=== PATIENT | male | born 1985 | race Caucasian/White ===

== ENCOUNTER 2021-10-17 18:03 | Emergency (ER) | payer MEDICAID, SELFPAY ==
[2021-10-17 18:15] VITALS: BP 93/65; PULSE 86; RESP 18; TEMP 36.4; O2SAT 100
--- NOTE | 2021-10-17 18:42 | ED.GENADUL_ITS ---
Discharge Plan Disposition Patient Disposition: HOME Condition: Stable Discharge Details Clinical Impression: Encounter for monitoring Suboxone maintenance therapy Primary Care Provider: Tosha,Local ED Provider: Geni Finch Home Meds and New Rx's Prescriptions: No Action buprenorphine-naloxone [Suboxone] 8-2 mg Film 1 film SUBLINGUAL DAILY RF: 0 Discharge Instructions Additional Instructions: You have been given a dose of your Suboxone therapy, please follow-up with your provider for additional dosing Medical Decision Making Patient appears well, he is alert and oriented, of decisional capacity I did supply patient with a dose of 8 mg Suboxone He is instructed to follow-up with his prescribing clinic tomorrow and to return earlier with new or worsening complaints Medical Records Medical records reviewed: Yes I reviewed the patient's medical records. Lab Data Lab results reviewed: Yes I reviewed the patient's lab results. HPI General Mode of arrival: ambulatory . Date/Time Provider Initiated Documentation: 10/17/21 18:20 . Limitations to Documentation: no limitations . Information obtained by: patient . HPI Narrative: This 36-year-old gentleman with history of IV drug abuse presents with request for different Suboxone. He states he is on 8 mg. He denies any fever or chills. He denies any withdrawal. He is not using any IV drugs recently. He states he is visiting family for Thanksgiving and tested to go to the [place] clinic, however they were unable to provide him with a dose which is why he presents here. Related Data Home Medications Medication Instructions Recorded Confirmed buprenorphine-naloxone [Suboxone] 1 film SUBLINGUAL DAILY 10/17/21 10/17/21 Allergies Allergy/AdvReac Type Severity Reaction Status Date / Time amoxicillin Allergy Severe Swelling/Ed Unverified 10/17/21 18:18 frances Penicillins Allergy Severe Swelling/Ed Unverified 10/17/21 18:18 frances General Stated Complaint: GenMedical DONOVAN: 5 Review of Systems All systems reviewed & are unremarkable except as noted in HPI and below [facility] Active Problem List (Updated 10/17/21 @ 18:51 by DELLA De Jesus) Encounter for monitoring Suboxone maintenance therapy (Acute) Social History Smoking/Tobacco Use Status: Current every day Tobacco Type: cigarettes Smoking risk assessment performed?: Yes Alcohol Intake: current Alcohol Intake frequency: holidays/special occasions only Drug use: Occasionally Substance use type: marijuana Do you feel safe at home: Yes Do you feel safe in your relationship?: Yes Exam Const General: cooperative Eyes General: appearance normal, both eyes and all related structures Resp Effort & Inspection: normal respiratory effort Cardio Rate: regular rate Neuro General: patient alert and patient oriented x3 Course Vital Signs Vital signs: Vital Signs Temperature 36.4 C L 10/17/21 18:15 Pulse 86 10/17/21 18:15 Respiratory Rate 18 10/17/21 18:15 Blood Pressure 93/65 L 10/17/21 18:15 Pulse Oximetry 100 10/17/21 18:15 Temperature 36.4 C L 10/17/21 18:15 Temperature Source Tympanic 10/17/21 18:15 Pulse 86 10/17/21 18:15 Respiratory Rate 18 10/17/21 18:15 Respiratory Effort Non-Labored 10/17/21 18:18 Blood Pressure 93/65 L 10/17/21 18:15 Pulse Oximetry 100 10/17/21 18:15 Pain Level 0 10/17/21 18:15
[2021-10-17] MEDS: Buprenorphine/Naloxone 8 mg/2 mg FILM 1 EACH SL (18:54)
--- NOTE | 2021-10-18 08:02 | NUR.NOTE ---
Nursing Note: Patient called asking about getting guest dosing for suboxone for today and tomorrow for himself and Andreia Enriquez. Per Dr. Huntley I told the patient that we do not prescribe chronic medications or narcotics. They should call their clinic to see about dosing here in [facility] or whatever else they can do. Stated they were told to be at their clinic by 9am and that they are unable to achieve that. I told them that if they have any problems or issues that we are here to evaluate them. Rochelle Gonzales
== END 2021-10-17 19:00 | disposition home or self-care (01) ==
PROVIDERS: Emergency Provider Physician Assistant
DX: F11.20 Opioid dependence, uncomplicated (principal); Z51.81 Encounter for therapeutic drug level monitoring
CPT/HCPCS: 99283

== ENCOUNTER 2021-11-06 15:52 | Emergency (ER) | payer MEDICAID, SELFPAY ==
[2021-11-06 15:55] VITALS: BP 103/65; PULSE 93; RESP 16; TEMP 36.5; O2SAT 97
--- NOTE | 2021-11-06 16:06 | ED.GENADUL_ITS ---
Discharge Plan Disposition Patient Disposition: HOME Condition: Stable Discharge Details Clinical Impression: Rash, Shingles Primary Care Provider: Tosha,Local ED Provider: Ronan Aragon Home Meds and New Rx's Prescriptions: New prednisone 20 mg tablet 60 mg PO DAILY 5 Days Qty: 15 RF: 0 acyclovir 800 mg tablet See Rx Instructions .ROUTE .COMPLEX 7 Days Qty: 35 RF: 0 Continued buprenorphine-naloxone [Suboxone] 8-2 mg Film 1 film SUBLINGUAL DAILY RF: 0 Discharge Instructions Instructions: Shingles (ED) Additional Instructions: your rash has the appearance of shingles follow up with your primary care provider in 1 week for itching symptoms you can take benadryl as needed follow dosing instructions on packaging if you feel more ill, have severe worsening pain or vision changes return to the emergency department Medical Decision Making 36 yo male comes in with chief complaint of lesions/rash on right side of his face. Denies any fevers or pain but that rash has been itchy. He has 3small circular areas that are mildly erythematous with a small vesicle in the center of them, one on the ear lobe and the other two on his cheek in a dermatome pattern. Normal external auditory canal, CN II-XII intact, no fevers or severe pain. I suspect shingles and he did have chicken pox as a child per patient, will start prednisone and acyclovir and advised to follow up with pcp, return precautions given Differential Diagnosis Differential Diagnosis: shingles, dermatitis, impetigo HPI General Mode of arrival: ambulatory . Date/Time Provider Initiated Documentation: 11/06/21 15:55 . Limitations to Documentation: no limitations . Information obtained by: patient . History of Present Illness 36 year old M presents to the emergency department with the chief complaint of rash, described as mild, and is localized to the face. Patient reports no radiation. Patient started experiencing this day(s) (2) and it has been constant. No relieving factors improve symptom(s), No exacerbating factors reported . Patient notes no other symptoms.. Patient did receive the following treatments prior to arrival, none Related Data Home Medications Medication Instructions Recorded Confirmed buprenorphine-naloxone [Suboxone] 1 film SUBLINGUAL DAILY 10/17/21 11/06/21 acyclovir See Rx Instructions .ROUTE 11/06/21 .COMPLEX 7 Days #35 tab prednisone 60 mg PO DAILY 5 Days #15 tab 11/06/21 Previous Rx's Medication Instructions Recorded acyclovir See Rx Instructions .ROUTE 11/06/21 .COMPLEX 7 Days #35 tab prednisone 60 mg PO DAILY 5 Days #15 tab 11/06/21 Allergies Allergy/AdvReac Type Severity Reaction Status Date / Time amoxicillin Allergy Severe Swelling/Ed Unverified 11/06/21 16:01 frances Penicillins Allergy Severe Swelling/Ed Unverified 11/06/21 16:01 frances General Stated Complaint: RashLesion DONOVAN: 4 Review of Systems All systems reviewed & are unremarkable except as noted in HPI and below Constitutional Constitutional: Denies chills, Denies fever(s) and Denies weakness Cardiovascular Cardiovascular: Denies chest pain and Denies dyspnea Respiratory Respiratory: Denies cough and Denies dyspnea Gastrointestinal Gastrointestinal: Denies abdominal pain, Denies nausea and Denies vomiting Musculoskeletal Musculoskeletal: Denies joint swelling Neurologic Neurologic: Denies weakness PFSH All Active Problems (Updated 11/06/21 @ 16:07 by Ronan Aragon MD) Encounter for monitoring Suboxone maintenance therapy (Acute) Rash (Acute) Shingles (Acute) Social History Smoking/Tobacco Use Status: Current every day Tobacco Type: cigarettes Smoking risk assessment performed?: Yes Alcohol Intake: current Alcohol Intake frequency: holidays/special occasions only Drug use: Occasionally Substance use type: marijuana Do you feel safe at home: Yes Do you feel safe in your relationship?: Yes Exam Const General: no acute distress Orientation: alert HENMT Head: normocephalic Ears: external ears normal General nose exam: external nose normal Mouth: moist mucous membranes Eyes General: appearance normal, both eyes and all related structures Neck Neck: normal visual inspection Resp Effort & Inspection: normal respiratory effort and able to speak in complete sentences Cardio Rate: regular rate Skin General skin exam: elasticity normal and turgor normal Neuro General: patient alert and patient oriented x3 Extrem General: normal to inspection Psych Mental Status: mental status grossly normal Course Vital Signs Vital signs: Vital Signs Temperature 36.5 C 11/06/21 15:55 Pulse 93 H 11/06/21 15:55 Respiratory Rate 16 11/06/21 15:55 Blood Pressure 103/65 11/06/21 15:55 Pulse Oximetry 97 11/06/21 15:55 Temperature 36.5 C 11/06/21 15:55 Temperature Source Temporal Artery Scan 11/06/21 15:55 Pulse 93 H 11/06/21 15:55 Respiratory Rate 16 11/06/21 15:55 Respiratory Effort Non-Labored 11/06/21 16:00 Blood Pressure 103/65 11/06/21 15:55 Blood Pressure Position Sitting 11/06/21 15:55 Pulse Oximetry 97 11/06/21 15:55 Oxygen Delivery Method Room Air 11/06/21 15:55 Oxygen Flow Rate 0 11/06/21 15:55 Pain Level 5 11/06/21 15:55
== END 2021-11-06 16:19 | disposition home or self-care (01) ==
PROVIDERS: Emergency Provider Emergency Medicine
DX: B02.9 Zoster without complications (principal); R21 Rash and other nonspecific skin eruption
CPT/HCPCS: 99283

== ENCOUNTER 2021-11-18 19:06 | Emergency (ER) | payer MEDICAID, SELFPAY ==
[2021-11-18 19:20] VITALS: BP 118/83; PULSE 119; RESP 18; TEMP 37; O2SAT 100
--- NOTE | 2021-11-18 19:31 | ED.GENADUL_ITS ---
Discharge Plan Disposition Patient Disposition: HOME Condition: Stable Discharge Details Clinical Impression: Encounter for monitoring Suboxone maintenance therapy Primary Care Provider: Tosha,Local ED Provider: Geni Finch Home Meds and New Rx's Prescriptions: Continued buprenorphine-naloxone [Suboxone] 8-2 mg Film 1 film SUBLINGUAL DAILY RF: 0 Discharge Instructions Additional Instructions: Please follow-up with your counselor and [facility] tomorrow You are cleared from having shingles and may return for your scheduled Suboxone dosing Please return earlier should you have new or worsening complaints Medical Decision Making Repeat heart rate 110, patient does appear to be withdrawing from his Suboxone and, he is alert and oriented, he is pleasant, he has no chest pain or shortness of breath He was supplied with his dose of Suboxone and will follow up with the [place] [facility] tomorrow for repeat dosing He is given low threshold to return should he have new or worsening complaints Medical Records Medical records reviewed: Yes I reviewed the patient's medical records. Lab Data Lab results reviewed: Yes I reviewed the patient's lab results. HPI General Mode of arrival: ambulatory . Date/Time Provider Initiated Documentation: 11/18/21 19:06 . Limitations to Documentation: no limitations . Information obtained by: patient . HPI Narrative: This 36-year-old male presents with report of Suboxone withdrawal. His last dose of Suboxone was on Wednesday. He has been missing doses of he developed shingles and was told that he could not go to the clinic for dosing. He denies any chest pain or shortness of breath. He does feel nauseous and he does report some abdominal cramping. He denies any fever or chills. He states his symptoms are consistent with Suboxone withdrawal which she is experienced before. He has not used heroin in the past 4 years reportedly. Related Data Home Medications Medication Instructions Recorded Confirmed buprenorphine-naloxone [Suboxone] 1 film SUBLINGUAL DAILY 10/17/21 11/18/21 Allergies Allergy/AdvReac Type Severity Reaction Status Date / Time amoxicillin Allergy Severe Swelling/Ed Unverified 11/06/21 16:01 frances Penicillins Allergy Severe Swelling/Ed Unverified 11/06/21 16:01 frances General Stated Complaint: DrugWithdr/MAT DONOVAN: 4 Review of Systems All systems reviewed & are unremarkable except as noted in HPI and below PFSH All Active Problems (Updated 11/18/21 @ 19:34 by DELLA De Jesus) Encounter for monitoring Suboxone maintenance therapy (Acute) Rash (Acute) Shingles (Acute) Social History Smoking/Tobacco Use Status: Current every day Tobacco Type: cigarettes Smoking risk assessment performed?: Yes Alcohol Intake: current Alcohol Intake frequency: holidays/special occasions only Drug use: Daily Substance use type: marijuana and other Do you feel safe at home: Yes Do you feel safe in your relationship?: Yes Exam Const General: cooperative and no acute distress Eyes Conjunctivae: conjunctivae normal Pupils: PERRL Resp Effort & Inspection: normal respiratory effort Auscultation: clear to auscultation bilaterally Cardio Rate: regular rate Rhythm: regular rhythm Skin Rashes: no rashes Neuro General: patient alert and patient oriented x3 Extrem Other: Distal pulses intact Course Vital Signs Vital signs: Vital Signs Temperature 37 C 11/18/21 19:20 Pulse 119 H 11/18/21 19:20 Respiratory Rate 18 11/18/21 19:20 Blood Pressure 118/83 11/18/21 19:20 Pulse Oximetry 100 11/18/21 19:20 Temperature 37 C 11/18/21 19:20 Temperature Source Temporal Artery Scan 11/18/21 19:20 Pulse 119 H 11/18/21 19:20 Respiratory Rate 18 11/18/21 19:20 Respiratory Effort 11/18/21 19:22 Respiratory Pattern Normal 11/18/21 19:23 Blood Pressure 118/83 11/18/21 19:20 Blood Pressure Position Sitting 11/18/21 19:20 Pulse Oximetry 100 11/18/21 19:20 Oxygen Delivery Method Room Air 11/18/21 19:20 Oxygen Flow Rate 0 11/18/21 19:20 Pain Level 8 11/18/21 19:20
[2021-11-18] MEDS: Buprenorphine/Naloxone 8 mg/2 mg FILM 1 EACH SL (19:36)
== END 2021-11-18 19:43 | disposition home or self-care (01) ==
PROVIDERS: Emergency Provider Physician Assistant
DX: F11.23 Opioid dependence with withdrawal (principal); Z51.81 Encounter for therapeutic drug level monitoring; Z79.891 Long term (current) use of opiate analgesic
CPT/HCPCS: 99283

== ENCOUNTER 2021-11-19 18:56 | Emergency (ER) | payer MEDICAID, SELFPAY ==
[2021-11-19 19:03] VITALS: BP 93/56; PULSE 79; RESP 16; TEMP 37.1; O2SAT 99
--- NOTE | 2021-11-19 19:16 | ED.GENADUL_ITS ---
Discharge Plan Disposition Patient Disposition: HOME Condition: Improving Discharge Details Clinical Impression: Encounter for monitoring Suboxone maintenance therapy Primary Care Provider: Tosha,Local ED Provider: Chandler Huntley Home Meds and New Rx's Prescriptions: Continued buprenorphine-naloxone [Suboxone] 8-2 mg Film 1 film SUBLINGUAL DAILY RF: 0 Discharge Instructions Additional Instructions: Please follow-up with the [facility] tomorrow as emergency department cannot dispense your medications on a daily basis. Medical Decision Making 36-year-old male seen now day #3 for Suboxone therapy after he reocating to this area and yet being able to establish local maintenance therapy. States they have a plan for this tomorrow. No recent drug use or withdrawal symptoms. Given their plans to follow-up at the [facility] tomorrow patient is given daily dose of Suboxone. HPI General Mode of arrival: ambulatory . Date/Time Provider Initiated Documentation: 11/19/21 19:06 . Limitations to Documentation: no limitations . Information obtained by: patient . History of Present Illness 36 year old M pr esents to the emergency department with the chief complaint of Medication request, described as similar to prior episodes, No relieving factors improve symptom(s), No exacerbating factors reported . Patient notes no other symptoms.. Patient did receive the following treatments prior to arrival, none Related Data Home Medications Medication Instructions Recorded Confirmed buprenorphine-naloxone [Suboxone] 1 film SUBLINGUAL DAILY 10/17/21 11/19/21 Allergies Allergy/AdvReac Type Severity Reaction Status Date / Time amoxicillin Allergy Severe Swelling/Ed Unverified 11/19/21 19:06 frances Penicillins Allergy Severe Swelling/Ed Unverified 11/19/21 19:06 frances General Stated Complaint: Recheck DONOVAN: 4 Review of Systems Narrative: Recovering from shingles, no further rash. Otherwise well. No recent drug use or withdrawal symptoms. Plans to reestablish care at local treatment center [facility] All Active Problems (Updated 11/19/21 @ 19:19 by Chandler Huntley MD) Encounter for monitoring Suboxone maintenance therapy (Acute) Rash (Acute) Shingles (Acute) Social History Smoking/Tobacco Use Status: Current every day Tobacco Type: cigarettes Smoking risk assessment performed?: Yes Alcohol Intake: current Alcohol Intake frequency: holidays/special occasions only Drug use: Daily Substance use type: marijuana and other Do you feel safe at home: Yes Do you feel safe in your relationship?: Yes Exam Narrative Exam Narrative: GEN: awake, alert, oriented 3. Pleasant, well groomed, interactive. HEAD: Normocephalic, atraumatic EYES: PERRL, EOMI NECK: Full ROM, no REEMA, no menigismus CHEST/RESP: Nontender, clear to auscultation bilateral, no wheeze/rhonchi/rales CARDIOVASCULAR: RRR, no murmur, rub shakeel. 2+ Rad pulse bilateral ABDOMEN: Soft, nontender, no mass. +Bowel sounds EXT: Full ROM, no edema, no rash Neuro: Grossly normal neurologic exam, conversant, interactive. Psych: Speech fluent, thoughts congruent, affect normal Course Vital Signs Vital signs: Vital Signs Temperature 37.1 C 11/19/21 19:03 Pulse 79 11/19/21 19:03 Respiratory Rate 16 11/19/21 19:03 Blood Pressure 93/56 L 11/19/21 19:03 Pulse Oximetry 99 11/19/21 19:03 Temperature 37.1 C 11/19/21 19:03 Temperature Source Temporal Artery Scan 11/19/21 19:03 Pulse 79 11/19/21 19:03 Respiratory Rate 16 11/19/21 19:03 Respiratory Effort Non-Labored 11/19/21 19:07 Blood Pressure 93/56 L 11/19/21 19:03 Blood Pressure Position Sitting 11/19/21 19:03 Pulse Oximetry 99 11/19/21 19:03 Oxygen Delivery Method Room Air 11/19/21 19:03 Oxygen Flow Rate 0 11/19/21 19:03
[2021-11-19] MEDS: Buprenorphine/Naloxone 8 mg/2 mg FILM 1 EACH SL (19:37)
[2021-11-19 19:47] VITALS: BP 94/64; PULSE 79; RESP 16; O2SAT 99
== END 2021-11-19 19:49 | disposition home or self-care (01) ==
PROVIDERS: Emergency Provider Emergency Medicine
DX: F11.20 Opioid dependence, uncomplicated (principal); Z79.891 Long term (current) use of opiate analgesic
CPT/HCPCS: 99283

== ENCOUNTER 2021-12-22 12:01 | Emergency (ER) | payer MEDICAID, SELFPAY ==
[2021-12-22 13:07] VITALS: BP 106/74; PULSE 72; RESP 16; TEMP 36.7; O2SAT 95
--- NOTE | 2021-12-22 13:15 | DI.RAD_ITS ---
Exam(s) XR PORTABLE CHEST AP EXAM: XR PORTABLE CHEST AP CLINICAL HISTORY: cough TECHNIQUE: 2D digital imaging was performed. COMPARISON: No exams were available for comparison FINDINGS: LUNGS: Clear. No pleural abnormality seen. HEART: Normal. MEDIASTINUM: Normal. BONES: Unremarkable. IMPRESSION: No acute pulmonary findings. DATA REPOSITORY: RADIATION DOSE DELIVERED:
--- NOTE | 2021-12-22 14:04 | ED.GENADUL_ITS ---
Discharge Plan Disposition Patient Disposition: HOME Condition: Stable Discharge Details Clinical Impression: Cough Primary Care Provider: Tosha,Local ED Provider: Hany Chavez Home Meds and New Rx's Prescriptions: Continued buprenorphine-naloxone [Suboxone] 8-2 mg Film 1 film SUBLINGUAL DAILY RF: 0 Discharge Instructions Instructions: Acute Cough (ED) Additional Instructions: Chest x-ray is clear. Covid test is pending, I recommend quarantine until this test has resulted negative likely in the next 2-3 days. You may use uipf-[id number]-zcvuskd 1% hydrocortisone cream for the skin rash on your left arm. Blsd-xpc-dbqzhau medications as directed for symptomatic control of your cough and congestion. Please watch for new or worsening symptoms and return to the ER for concerns Discharge Data Discharge Date/Time-TO BE ENTERED AT DEPARTURE: 12/22/21 14:35 Medical Decision Making 36-year-old gentleman, smoker, reports cold-like symptoms, both he and his significant other have. He has taken aahe-fky-bkqxbrj anti-inflammatory medication for his symptoms. He has had his 2 Covid vaccines but no booster. He also reports a rash that he noted this morning his left arm, slightly itchy. Clinically he appears well, nontoxic, no respiratory distress. Plan is to obtain a send out Covid swab and obtain a chest x-ray. Rash looks more like irritation, no signs of infection, recommend xgde-mki-[id number] hydrocortisone cream. Chest x-ray is unremarkable. Covid test pending. Patient comfortable discharge and has additional questions or concerns. We did discuss standard quarantine procedure. I have also placed him on the care management list to help outpatient primary care follow-up. This documentation was generated using Trelloation system, please disregard any oddities of phrase or misspellings. Medical Records Medical records reviewed: Yes I reviewed the patient's medical records. Imaging Data Radiologic Study: Attestation: I personally reviewed and interpreted this imaging study as follows: Imaging: X-Ray Radiologist's impression: Exam(s) XR PORTABLE CHEST AP EXAM: XR PORTABLE CHEST AP CLINICAL HISTORY: cough TECHNIQUE: 2D digital imaging was performed. COMPARISON: No exams were available for comparison FINDINGS: LUNGS: Clear. No pleural abnormality seen. HEART: Normal. MEDIASTINUM: Normal. BONES: Unremarkable. IMPRESSION: No acute pulmonary findings. HPI General Mode of arrival: ambulatory . Date/Time Provider Initiated Documentation: 12/22/21 13:23 . Limitations to Documentation: no limitations . Information obtained by: patient . History of Present Illness 36 year old M presents to the emergency department with the chief complaint of Cold, described as mild, with intensity rated at 2. Quality is described as aching, and is localized to the head, face and chest. Patient reports no radiation. Patient started experiencing this day(s) (7) and it has been constant. No relieving factors improve symptom(s), No exacerbating factors reported . Patient notes cough and rash; denies chest pain, fever/chills, headaches and shortness of breath. Patient did receive the following treatments prior to arrival, NSAID Related Data Home Medications Medication Instructions Recorded Confirmed buprenorphine-naloxone [Suboxone] 1 film SUBLINGUAL DAILY 10/17/21 12/22/21 Allergies Allergy/AdvReac Type Severity Reaction Status Date / Time amoxicillin Allergy Severe Swelling/Ed Unverified 12/22/21 13:14 frances Penicillins Allergy Severe Swelling/Ed Unverified 12/22/21 13:14 frances General Stated Complaint: RespSymp DONOVAN: 4 Review of Systems Constitutional Constitutional: Denies fever(s) and Denies headache(s) ENT Ears, Nose, Mouth, and Throat: Denies headache(s) and Reports sore throat Cardiovascular Cardiovascular: Denies chest pain and Denies dyspnea Respiratory Respiratory: Reports cough and Denies dyspnea Gastrointestinal Gastrointestinal: Denies abdominal pain, Denies nausea and Denies vomiting Musculoskeletal Musculoskeletal: Denies myalgias Integumentary/Breasts Skin/Breast: Reports rash Neurologic Neurologic: Denies headache(s) PFSH All Active Problems Encounter for monitoring Suboxone maintenance therapy (Acute) Rash (Acute) Shingles (Acute) Cough (Acute) Social History Smoking/Tobacco Use Status: Current every day Tobacco Type: cigarettes Smoking risk assessment performed?: Yes Alcohol Intake: current Alcohol Intake frequency: holidays/special occasions only Drug use: Daily Substance use type: marijuana and other Do you feel safe at home: Yes Do you feel safe in your relationship?: Yes Exam Const General: cooperative, healthy appearing, comfortable and no acute distress Orientation: alert and awake [facility] Head: normal to inspection, normocephalic and atraumatic Ears: external ears normal, TM's normal bilaterally and EAC's normal General nose exam: no nasal discharge Mouth: moist mucous membranes Teeth and gingiva: poor dentition Throat: posterior oropharynx normal Eyes General: appearance normal, both eyes and all related structures Conjunctivae: conjunctivae normal Neck Neck: normal visual inspection, full ROM, no lymphadenopathy, no meningeal signs, trachea midline, supple and nontender Resp Effort & Inspection: normal respiratory effort and able to speak in complete sentences Auscultation: clear to auscultation bilaterally Cardio Rate: regular rate Rhythm: regular rhythm Skin Full body images: 1. There is a single quarter sized area of slightly raised erythema. Well defined borders. Blanchable. There is no warmth, tenderness, induration or fluctuance. No lymphangitic streaking Neuro General: patient alert, patient awake, moves all extremities and no focal motor deficits Cognition: normal cognition Speech: speech normal Sensory Exam: no sensory deficits noted Psych Appearance: grossly normal Mental Status: mental status grossly normal Course Vital Signs Vital signs: Vital Signs Temperature 36.7 C 12/22/21 13:07 Pulse 72 12/22/21 13:07 Respiratory Rate 16 12/22/21 13:07 Blood Pressure 106/74 12/22/21 13:07 Pulse Oximetry 95 12/22/21 13:07 Temperature 36.7 C 12/22/21 13:07 Temperature Source Temporal Artery Scan 12/22/21 13:07 Pulse 72 12/22/21 13:07 Respiratory Rate 16 12/22/21 13:07 Respiratory Effort Non-Labored 12/22/21 13:14 Respiratory Depth Normal 12/22/21 13:14 Blood Pressure 106/74 12/22/21 13:07 Blood Pressure Position Sitting 12/22/21 13:07 Pulse Oximetry 95 12/22/21 13:07 Oxygen Delivery Method Room Air 12/22/21 13:07 Oxygen Flow Rate 0 12/22/21 13:07 Pain Level 3 12/22/21 13:07 PAWSS Have you Been Recently Intoxicated or Drunk Within the Last 30 days?: No Have you Ever Experienced Previous Episodes of Alcohol Withdrawal?: No Have you ever Experienced Withdrawal Seizures?: No Have you ever Experienced Delirium Tremens(DT)s?: No Have you ever undergone Alcohol Rehabilitation Treatment (i.e, inpt ot outpatient treatment programs)?: No Have you ever Experienced Blackouts?: No Have you ever Combined Alcohol with other Downers within the last 90 days?: No Have you ever Combined Alcohol with any other Substance of Abuse during the last 90 days?: No Positive Blood Alcohol level on Presentation? [PCS.BAL]: No Evidence of Increased Autonomic Activity (i.e. HR>120, tremor, sweating, agitation, nausea)?: No Result: 0
[2021-12-24 09:30] LABS: COVID-19 RT-PCR UVMMC Result Negative (Negative)
== END 2021-12-22 14:35 | disposition home or self-care (01) ==
PROVIDERS: Emergency Provider Physician Assistant
DX: R05.1 Acute cough (principal); R21 Rash and other nonspecific skin eruption; F17.210 Nicotine dependence, cigarettes, uncomplicated; Z20.822 Contact with and (suspected) exposure to COVID-19
CPT/HCPCS: 99283; U0003; 71045